=== PATIENT | female | born 1955 | race Caucasian/White ===

== ENCOUNTER → 2017-01-21 | Outpatient (CLI) | payer OTHER ==
[~2017-01-21] MED LIST: ATIVAN0.5 MG PO; BACTRIM DS TAB1 EACH PO; CLARITIN-D 12 H1 TA2 PO; CYMBALTA30 MG; DECONGESTANT NA15 ML NS; DOXYCYCLINE 10100 MG PO; NORCO 5-325 TA1 EACH PO; PREDNISONE 10 M10 M1 PO; TRAMADOL 50 MG50 MG PO; ULTRACET TABLET1 TAB PO; ZPAK PO; [UNRECOGNIZED DRUG - OTHER]
== END ==
LOC: CAT 10:13
DX: Z13.6 Encounter for screening for cardiovascular disorders (principal); R07.89 Other chest pain

== ENCOUNTER → 2019-05-27 | Outpatient (CLI) | payer OTHER | LOC: MRI 07:31 | DX: M43.12 Spondylolisthesis, cervical region (principal); M47.22 Other spondylosis with radiculopathy, cervical region; M50.11 Cervical disc disorder with radiculopathy, high cervical region; M48.02 Spinal stenosis, cervical region; M12.88 Other specific arthropathies, not elsewhere classified, other specified site ==